=== PATIENT | female | born 1975 | race American Indian/Alaskan Native ===

== ENCOUNTER 2017-05-19 10:41 | Emergency (ER) | payer OTHER ==
[~2017-05-19] VITALS: Ht 160 cm; Wt 106.6 kg
[2017-05-19] MEDS ORDERED: ALLEGRA-D 12 H1 EACH (11:04)
== END 2017-05-19 14:39 | disposition home or self-care (01) ==
LOC: ER 10:41
DX: H66.002 Acute suppurative otitis media without spontaneous rupture of ear drum, left ear (principal)